=== PATIENT | female | born 1950 | race Caucasian/White ===

== ENCOUNTER 2018-08-27 17:35 | Emergency (ER) | payer MEDICARE, BC ==
[~2018-08-27] VITALS: Ht 160 cm; Wt 57.6 kg
[2018-08-27] MEDS ORDERED: LISINOPRIL20 MG PO (17:59)
[2018-08-27] MEDS ORDERED: ONDANSETRON HCL4 M2 PO (17:59)
[2018-08-27] MEDS ORDERED: SYNTHROID50 MCG PO (17:59)
[2018-08-27] MEDS ORDERED: LIPITOR10 MG PO (17:59)
[2018-08-27] MEDS ORDERED: AZITHROMYCIN 2250 MG PO (17:59)
[2018-08-27] MEDS ORDERED: LINZESS72 MCG PO (18:00)
[2018-08-27 19:12] LABS: ABSOLUTE MONOCYTES 0.3 thou/uL (0.0-1.2); ABSOLUTE NEUTROPHILS 4.6 thou/uL (1.6-8.1); BASOPHILS 0.7 %; EOSINOPHILS 0.1 %; HEMATOCRIT 45.6 % (37.0-47.0); HEMOGLOBIN 15.4 gm/dL (12.0-15.0); LYMPHOCYTES 16.6 %; MCH 30.8 pg (26.0-34.0); MCHC 33.9 g/dL (28.0-37.0); MCV 90.9 fL (80.0-100.0); MONOCYTES 5.7 %; MPV 8.6 fl. (7.2-11.1); NUCLEATED RBCS 0 /100WBC; PLATELET COUNT* 204 thou/uL (150-400); POLYS 76.9 %; RBC 5.02 mil/uL (4.20-5.00); RDW-CV 12.7 % (10.5-14.5)
[2018-08-27 19:22] LABS: ANION GAP 11 mmol/L (7-16); BUN 16 mg/dL (7-18); CALCIUM 9.7 mg/dL (8.5-10.1); CHLORIDE 104 mmol/L (98-107); CO2 26 mmol/L (21-32); GLUCOSE 107 mg/dL (70-99); POTASSIUM 4.5 mmol/L (3.5-5.1); SODIUM 141 mmol/L (136-145)
[2018-08-27 19:26] LABS: ALKALINE PHOSPHATASE 83 U/L (46-116); MAGNESIUM 2.1 mg/dL (1.8-2.4); SGOT 24 U/L (15-37); SGPT 19 U/L (30-65); TOTAL BILIRUBIN 0.7 mg/dL (<0.1-1.0); TOTAL PROTEIN 7.2 g/dL (6.4-8.2); TROPONIN-I LEVEL <0.06 ng/mL (<0.06)
[2018-08-27] MEDS ORDERED: ZOFRAN ODT4 MG SUBLING (20:47)
[2018-08-27] MEDS ORDERED: PHENERGAN 25 MG25 M1 PO (20:58)
[2018-08-27 21:03] VITALS: BP 156/68
== END 2018-08-27 21:03 | disposition home or self-care (01) ==
LOC: M.ERS 17:35
PROVIDERS: Personal Emergency Response Attendant
DX: R11.2 Nausea with vomiting, unspecified (principal); E03.9 Hypothyroidism, unspecified; I10 Essential (primary) hypertension; E78.00 Pure hypercholesterolemia, unspecified